=== PATIENT | female | born 1970 | race Caucasian/White ===

== ENCOUNTER 2016-09-17 16:03 | Emergency (ER) | payer OTHER ==
--- NOTE | ~2016-09-17 | CT16 ---
[facility] A Service of [facility] RADIOLOGY TEXT RESULTS PATIENT: LEIGH FRANK LOCATION: [facility] : 70 UNIT #: [id number] AGE: [address]: Indy Wallace APRN SEX: F ORDER DR: [id number] [facility] [address] [place], [place] [address] [id number] E MR#: [id number] Acc #: [id number] NAME: LEIGH FRANK : 1970 SEX: F STUDY DATE/TIME: 09/17/2016 19:17 UNIT: CFTX ROOM: STUDY DESCRIPTION: CT Angio Chest for PE Attending Physician: Indy Wallace A.P.R.N. Ordering Physician: Corky Fierro M.D. Primary Care Physician: Siddharth Clark M.D. MEDICAL IMAGING REPORT This report is preliminary unless electronic signature is present EXAM CT chest PE protocol with contrast, 09/17/2016 INDICATION 46-year-old female with low back pain for a week, mid-back pain in the thoracic area for a week. History of ovarian malignancy. Shortness of air today. TECHNIQUE Contrast-enhanced CT scan of the chest PE protocol was performed with 3-D reformats. This CT exam was performed with one or more of the following radiation dose reduction techniques: automatic exposure control, adjustment of mA and/or kV according to patient size, and iterative reconstruction. COMPARISON 01/17/[address] CHEST: IV bolus adequate. Aorta demonstrates no aneurysm or dissection. There is no evidence of acute pulmonary embolus in the central pulmonary dural tree. Included thyroid is unremarkable. Reactive-appearing mediastinal nodes are present. No pericardial effusion. Reactive-appearing axillary nodes are present. Included upper abdomen demonstrates splenomegaly. The adrenal glands are within normal limits. Pancreas demonstrates mild atrophy and prominence of the pancreatic duct which is unchanged. Gallbladder is surgically absent. Dilatation of the extrahepatic common bile duct unchanged and likely physiologic given cholecystectomy change. Intrahepatic ductal dilatation is stable and may also reflect sequela of prior STS. [facility] A Service of [facility] RADIOLOGY TEXT RESULTS PATIENT: LEIGH FRANK LOCATION: [facility] : [birth year] UNIT #: [id number] AGE: [address]: Indy Wallace APRN SEX: F ORDER DR: cholecystectomy. Liver otherwise unremarkable. Included kidneys are unremarkable. Postop changes of the stomach suggestive of gastric bypass. Reactive-appearing retroperitoneal nodes. Nonspecific stranding around the origin of the superior mesenteric artery. This may reflect an element of mild vasculitis. On the prior CT angiography study of 01/17/2016 there appears to be some subtle stranding present on that study as well and findings are therefore likely to be chronic but should be correlated with patient history and presentation. There is no pleural effusion. The lungs demonstrate mild emphysematous change. There is chronic atelectasis or scarring in the right middle lobe. There are multiple chronic rib fractures on the right including at least 1 chronic nonunited rib fracture. There is no compression fracture or malalignment in the thoracolumbar spine. IMPRESSION 1. No aortic aneurysm or dissection. 2. No PE. 3. The lungs demonstrate mild emphysematous change and there are chronic rib fractures on the right including at least 1 nonunited rib fracture that is chronic in nature. There is some atelectasis or scarring in the right middle lobe. 4. Upper abdomen demonstrates splenomegaly, surgical absence of the gallbladder and probable physiologic dilatation of the intra and extrahepatic biliary tree, similar to the prior study. 5. There is some nonspecific stranding around the origin of the superior mesenteric artery. This may reflect an element of vasculitis, but in retrospect there was some stranding on the prior CT of 01/17/2016 favoring chronicity. Correlate with patient presentation and history. Dictated by... Julio César Duran M.D. THIS IS AN ELECTRONICALLY VERIFIED REPORT Julio César Duran M.D. at 09/18/2016 2:50 PM JASON/aurea TD: 09/18/2016 00:04 JOB #: [id number] MEDICAL IMAGING REPORT Page 1 of 1 COPY
[2016-09-17 15:43] LABS: URINE SOURCE CLEAN CATCH
[2016-09-17 15:56] LABS: URINE APPEARANCE CLEAR; URINE BILIRUBIN NEG (NEG); URINE BLOOD NEG (NEG); URINE COLOR YELLOW; URINE GLUCOSE NEG (NEG); URINE KETONE TRACE (NEG); URINE LEUKOCYTE ESTERASE 2+ (NEG); URINE NITRATE POS (NEG); URINE PH 6.5 (5-8); URINE PROTEIN NEG (NEG); URINE SPECIFIC GRAVITY 1.019 (1.003-1.035)
[2016-09-17 15:59] LABS: CULTURE INDICATED? YES; URBCS1 AUWI 0-2 /[HPF] (0-2); URINE BACTERIA AUWI 4+ (NEGATIVE); URINE SQUAMOUS EPITHELIAL CELL OCC /[HPF]
[~2016-09-17 16:03] MED LIST: ACETAMINOPHEN325 MG PO; ADULTS' DAILY1 EACH PO; ADVIL200 M2 PO; ALDACTONE PO; ALPRAZOLAM PO; AMOXICILLIN PO; AURODEX EAR DRO15 ML OT; BACTRIM DS TABL1 TA1 PO; BACTRIM DS TABL1 TAB PO; CELEXA20 MG PO; CITALOPRAM HBR40 MG PO; CLEOCIN HCL300 M1 PO; CLINDAMYCIN HC300 MG PO; DIAZEPAM PO; DOXYCYCLINE PO; FLAGYL PO; FLEXERIL10 M1 PO; FLEXERIL10 MG PO; HYDROCODONE-APA1 T58 PO; IBUPROFEN800 MG PO; KCL PO; KEPPRA500 MG PO; KLONOPIN; KLONOPIN0.5 MG PO; LACTULOSE10 G/15 ML PO; LASIX PO; LASIX20 MG PO; LEVAQUIN PO; LEVAQUIN250 MG PO; LEVAQUIN750 MG PO; LEVETIRACETAM500 MG PO; LEVOTHYROXINE100 MC1 PO; LEVOTHYROXINE100 MCG PO; LORTAB 5/500 TA1 TA1 PO; LORTAB 5/500 TA1 TA2 PO; LORTAB 7.5-5001 TAB PO; MEDROL PO; MIRALAX17 GM PO; NAPROSYN500 MG PO; NICOTINE T1 PATCH .2 TOP; NICOTINE TRANSD21 MG; NO MEDICATIONS; NORCO 10-325 TA1 TAB PO; NORCO 10/3251 TAB PO; NORCO 5/325 TAB1 TAB PO; ORUDIS75 M1 DOB; OXYIR5 MG PO; PAIN RELIEF325 MG PO; PANTOPRAZOLE SO40 MG PO; PEN-VEE K PO; PERCOCET5/325 PO; PERCOCET7.5 PO; PROTONIX PO; PROVENTIL17 GM IH; ROBITUSSIN-DM120 ML PO; SPIRONOLACTONE50 MG PO; STOOL SOFTENER100 M1 PO; SYNTHROID PO; SYNTHROID125 PO; TRAZODONE PO; ULTRAM PO; VICODIN PO; WATER PILL; XANAX1 MG PO; ZITHROMAX1 G/PKT PO; ZOFRAN ODT4 MG PO
[2016-09-17 17:12] LABS: BASOPHIL% 0.6 % (0-2.5); EOSINOPHIL# 0.1 X10e3 (0-0.7); HEMATOCRIT 30.3 % (35.0-45.0); HEMOGLOBIN 9.3 gm/dL (12.0-16.0); LYMPHOCYTE# 1.1 X10e3 (1.0-3.5); LYMPHOCYTE% 29.6 % (17.0-45.0); MEAN CELL VOLUME 77.7 FL (83-96); MEAN CORPUSCULAR HEMOGLOBIN 23.8 PG (28-34); MEAN CORPUSCULAR HGB CONC 30.7 g/dL (30-36); MEAN PLATELET VOLUME 9.3 FL (6.5-11.5); MONOCYTE# 0.3 X10e3 (0-1.0); MONOCYTE% 8.6 % (3.0-12.0); NEUTROPHIL# 2.1 X10e3 (1.5-7.1); NEUTROPHIL% 58.2 % (40-75); PLATELET COUNT 128 X10e3 (140-420); RED CELL DISTRIBUTION WIDTH 18.6 % (11.0-15.5); WHITE BLOOD COUNT 3.7 X10e3 (4.0-10.5)
[2016-09-17 17:15] LABS: DIFF IND NO
[2016-09-17 18:17] LABS: ALBUMIN SERUM 3.8 g/dL (3.5-5.0); BILIRUBIN,TOTAL 0.4 mg/dL (0.2-2.0); BUN/CREATININE RATIO 23.33; CREATININE SERUM 0.6 mg/dL (0.6-1.4); GLOM FILT RATE Estimated 109.3 mL/min (>60); POTASSIUM 4.2 mmol/L (3.5-5.1); PROTEIN TOTAL SERUM 6.9 g/dL (6.0-8.3)
== END 2016-09-17 20:45 | disposition home or self-care (01) ==
LOC: CFTX 16:03
PROVIDERS: Nurse Practitioner
DX: N30.00 Acute cystitis without hematuria (principal); D64.9 Anemia, unspecified; D72.819 Decreased white blood cell count, unspecified; I10 Essential (primary) hypertension; K75.9 Inflammatory liver disease, unspecified; F17.210 Nicotine dependence, cigarettes, uncomplicated; Z86.73 Personal history of transient ischemic attack (TIA), and cerebral infarction without residual deficits; Z88.1 Allergy status to other antibiotic agents; Z88.5 Allergy status to narcotic agent; Z88.8 Allergy status to other drugs, medicaments and biological substances
CPT/HCPCS: 36415; 71275; 80053; 81003; 83690; 84703; 85025; 87086; 87088; 87186; 96374; 96375; 96376; 99284; J2270; J2405; Q9967

== ENCOUNTER 2017-01-16 20:07 | Emergency (ER) | payer OTHER ==
[~2017-01-16] VITALS: Ht 170.2 cm; Wt 83.9 kg
--- NOTE | ~2017-01-16 | CT2 ---
[facility] A Service of [facility] RADIOLOGY TEXT RESULTS PATIENT: LEIGH FRANK LOCATION: [facility] : 70 UNIT #: [id number] AGE: [address]: DEVAN LAWRENCE APRN SEX: F ORDER DR: [id number] [facility] [address] [place], [place] [address] [id number] E MR#: [id number] Acc #: [id number] NAME: LEIGH FRANK : 1970 SEX: F STUDY DATE/TIME: 01/17/2017 03:12 UNIT: [facility] ROOM: STUDY DESCRIPTION: CT Abd and Pelv W Cont Attending Physician: Devan Lawrence Aprn Ordering Physician: Devan Lawrence Aprn Primary Care Physician: Siddharth Clark M.D. MEDICAL IMAGING REPORT This report is preliminary unless electronic signature is present EXAM Abdomen and pelvis CT 01/17 03:12 INDICATION Abdominal pain with nausea, vomiting for 1 week. History of breast cancer. TECHNIQUE Axial images were obtained through the abdomen and pelvis following oral and IV contrast administration. Multiplanar reformats were obtained. Comparison is made with 11/15/2016. This CT examination was performed with one or more of the following radiation dose reduction techniques: automatic exposure control, adjustment of mA and/or kV according to patient size, and iterative reconstruction. FINDINGS ABDOMEN: Old right lower rib fractures are again seen. Lung bases are clear. Gallbladder surgically absent. Intra- and extrahepatic biliary ductal dilatation are unchanged. This is also unchanged from a CT abdomen dated 07/01/2014. Lobular contour to the kidneys is again seen. Solid organs are otherwise unremarkable. Patient is status post gastric bypass. No bowel obstruction is seen. There is no free fluid. PELVIS: Urinary bladder is normal. Solid pelvic organs are normal. There is no free fluid. GI tract is remarkable for redundant sigmoid loops. IMPRESSION 1. No clearly acute findings in the abdomen or pelvis. 2. Cholecystectomy with intra- and extrahepatic biliary ductal dilatation. This appears essentially stable from 2014. 3. Gastric bypass. No bowel obstruction or acute GI tract inflammation identified. Note is made of redundant sigmoid colon loops. STS. [facility] A Service of [facility] RADIOLOGY TEXT RESULTS PATIENT: LEIGH FRANK LOCATION: [facility] : 70 UNIT #: [id number] AGE: [address]: DEVAN LAWRENCE APRN SEX: F ORDER DR: 4. Nonobstructed kidneys. ADDENDUM Not mentioned above is splenomegaly which is not significantly changed. Dictated by... Farrukh Villalobos Jr., M.D. THIS IS AN ELECTRONICALLY VERIFIED REPORT Farrukh Villalobos Jr., M.D. at 01/18/2017 12:52 AM STEFAN/juliet TD: 01/17/2017 09:01 JOB #: [id number] MEDICAL IMAGING REPORT Page 1 of 1 COPY
[2017-01-16 21:22] LABS: BASOPHIL% 0.3 % (0-2.5); EOSINOPHIL# 0.2 X10e3 (0-0.7); EOSINOPHIL% 2.1 % (0.0-7.0); HEMATOCRIT 31.5 % (35.0-45.0); HEMOGLOBIN 9.7 gm/dL (12.0-16.0); LYMPHOCYTE# 1.2 X10e3 (1.0-3.5); LYMPHOCYTE% 15.2 % (17.0-45.0); MEAN CELL VOLUME 78.6 FL (83-96); MEAN CORPUSCULAR HEMOGLOBIN 24.3 PG (28-34); MEAN CORPUSCULAR HGB CONC 30.9 g/dL (30-36); MEAN PLATELET VOLUME 8.4 FL (6.5-11.5); MONOCYTE# 0.5 X10e3 (0-1.0); MONOCYTE% 5.6 % (3.0-12.0); NEUTROPHIL# 6.3 X10e3 (1.5-7.1); NEUTROPHIL% 76.8 % (40-75); PLATELET COUNT 195 X10e3 (140-420); RED CELL DISTRIBUTION WIDTH 20.4 % (11.0-15.5); WHITE BLOOD COUNT 8.2 X10e3 (4.0-10.5)
[2017-01-16 21:24] LABS: DIFF IND NO
[2017-01-16 22:00] LABS: ALBUMIN SERUM 3.7 g/dL (3.5-5.0); BILIRUBIN, DIRECT 0.1 mg/dL (0.0-0.2); BILIRUBIN,TOTAL 0.1 mg/dL (0.2-2.0); BUN/CREATININE RATIO 8.88; CALCIUM SERUM 8.8 mg/dL (8.4-10.2); CREATININE SERUM 0.9 mg/dL (0.6-1.4); GLOM FILT RATE Estimated 76.7 mL/min (>60); POTASSIUM 3.7 mmol/L (3.5-5.1)
[2017-01-17 00:43] LABS: URINE SOURCE CLEAN CATCH
[2017-01-17 00:51] LABS: URINE APPEARANCE CLOUDY; URINE BILIRUBIN NEG (NEG); URINE BLOOD NEG (NEG); URINE COLOR YELLOW; URINE GLUCOSE NEG (NEG); URINE KETONE NEG (NEG); URINE LEUKOCYTE ESTERASE TRACE (NEG); URINE NITRATE NEG (NEG); URINE PH 6.5 (5-8); URINE PROTEIN NEG (NEG); URINE SPECIFIC GRAVITY 1.012 (1.003-1.035); URINE UROBILINOGEN 0.2 MG/DL (NEG)
[2017-01-17 00:54] LABS: CULTURE INDICATED? YES; U HYALINE CASTS AUWI 0-2 /[LPF]; URBCS1 AUWI 0-2 /[HPF] (0-2); URINE BACTERIA AUWI 1+ (NEGATIVE); URINE SQUAMOUS EPITHELIAL CELL MOD /[HPF]
== END 2017-01-17 04:20 | disposition home or self-care (01) ==
LOC: CED 20:07
DX: R10.9 Unspecified abdominal pain (principal); R11.2 Nausea with vomiting, unspecified; R19.7 Diarrhea, unspecified; F17.210 Nicotine dependence, cigarettes, uncomplicated; D64.9 Anemia, unspecified; K74.60 Unspecified cirrhosis of liver; E03.9 Hypothyroidism, unspecified; Z86.73 Personal history of transient ischemic attack (TIA), and cerebral infarction without residual deficits; Z90.49 Acquired absence of other specified parts of digestive tract; Z98.890 Other specified postprocedural states; Z79.899 Other long term (current) drug therapy; Z88.1 Allergy status to other antibiotic agents; Z88.5 Allergy status to narcotic agent
CPT/HCPCS: 36415; 74177; 80048; 80076; 81003; 83690; 85025; 87086; 96361; 96374; 96375; 99284; J1885; J2270; J2405; Q9967

== ENCOUNTER 2017-02-09 18:19 | Emergency (ER) | payer OTHER ==
--- NOTE | ~2017-02-09 | CR230 ---
[facility] A Service of [facility] RADIOLOGY TEXT RESULTS PATIENT: LEIGH FRANK LOCATION: [facility] : 70 UNIT #: [id number] AGE: [address]: Mary Fry APRN SEX: F ORDER DR: [id number] [address] [address] [id number] E MR#: [id number] Acc #: [id number] NAME: LEIGH FRANK : 1970 SEX: F STUDY DATE/TIME: 02/09/2017 18:47 UNIT: SED ROOM: STUDY DESCRIPTION: CR Shoulder Min 2 View Rt Attending Physician: Mary Fry A.P.R.N. Ordering Physician: Mary Garcia A.P.R.N. Primary Care Physician: Siddharth Clark M.D. MEDICAL IMAGING REPORT This report is preliminary unless electronic signature is present. EXAMINATION Three views, right shoulder. DATE 02/09/2017 HISTORY Right shoulder pain for 1 1/2 to 2 weeks with limited range of motion after helping someone move furniture. COMPARISON Right shoulder radiographs, 07/04/2013. FINDINGS Coarse calcifications are seen along the capsular margin of the right proximal humerus may represent changes of chronic calcific tendinosis. There is divet within the greater tuberosity of the right humerus, which may represent old Hill-Sachs deformity or sequelae of remote trauma. No acute fracture or joint dislocation is seen. The glenohumeral joint space appears well maintained. No AC or CC separation is seen. No significant acromioclavicular arthropathy is identified. There are multiple old right rib fractures. Right chest wall Port-A-Cath extends into the lower SVC. Imaged right rib appears intact. IMPRESSION 1. 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 No acute right shoulder findings. 2. Multiple old right rib fractures. Dictated by... [facility] A Service [facility] RADIOLOGY TEXT RESULTS PATIENT: LEIGH FRANK LOCATION: [facility] : 70 UNIT #: [id number] AGE: [address]: Mary Fry APRN SEX: F ORDER DR: Isa Wolfe M.D. THIS IS AN ELECTRONICALLY VERIFIED REPORT Isa Wolef M.D. at 02/12/2017 9:52 AM FIONA/trinidad TD: 02/11/2017 05:35 JOB #: [id number] MEDICAL IMAGING REPORT Page 1 of 1
== END 2017-02-09 19:59 | disposition home or self-care (01) ==
LOC: SED 18:19
DX: M75.31 Calcific tendinitis of right shoulder (principal); E03.9 Hypothyroidism, unspecified; Z88.5 Allergy status to narcotic agent; Z88.1 Allergy status to other antibiotic agents
CPT/HCPCS: 73030; 99283

== ENCOUNTER 2017-02-18 14:47 | Emergency (ER) | payer OTHER ==
[~2017-02-18] VITALS: Ht 170.2 cm; Wt 88.5 kg
--- NOTE | ~2017-02-18 | CR127 ---
[facility] A Service of [facility] RADIOLOGY TEXT RESULTS PATIENT: LEIGH FRANK LOCATION: [facility] : 70 UNIT #: [id number] AGE: [address]: Zenia Trimble SEX: F ORDER DR: [id number] [address] [address] [id number] E MR#: [id number] Acc #: [id number] NAME: LEIGH FRANK : 1970 SEX: F STUDY DATE/TIME: 02/18/2017 15:27 UNIT: SED ROOM: STUDY DESCRIPTION: CR Foot Complete Min 3 View Rt Attending Physician: Zenia Trimble M.D. Ordering Physician: Zenia Trimble M.D. Primary Care Physician: Primary Care Physician No MEDICAL IMAGING REPORT This report is preliminary unless electronic signature is present. EXAM Right foot HISTORY Right foot pain since last night when wine bottle fell on foot. FINDINGS Three views of the right foot were obtained and compared to 10/26/2012. No fracture is identified. The bones appear normal. IMPRESSION Normal right foot. Dictated by... Everette Bowser M.D. THIS IS AN ELECTRONICALLY VERIFIED REPORT Everette Bowser M.D. at 02/19/2017 2:00 PM Marge TD: 02/19/2017 10:24 JOB #: [id number] MEDICAL IMAGING REPORT Page 1 of 1
[2017-02-18] MEDS ORDERED: LISINOPRIL (15:04)
[2017-02-18] MEDS ORDERED: TRAZODONE HCL100 MG (15:04)
[2017-02-18] MEDS ORDERED: NORVASC (15:04)
[2017-02-18] MEDS ORDERED: ZANAFLEX (15:04)
== END 2017-02-18 16:25 | disposition home or self-care (01) ==
LOC: SED 14:47
DX: S90.31XA Contusion of right foot, initial encounter (principal); E03.9 Hypothyroidism, unspecified; Z88.1 Allergy status to other antibiotic agents; Z88.5 Allergy status to narcotic agent; W20.8XXA Other cause of strike by thrown, projected or falling object, initial encounter; Y92.009 Unspecified place in unspecified non-institutional (private) residence as the place of occurrence of the external cause
CPT/HCPCS: 29540; 73630; 99283